=== PATIENT | female | born 2000 | race Caucasian/White ===

== ENCOUNTER → 2019-09-13 13:18 | Outpatient (CLI) | payer OTHER, SELFPAY ==
[2019-09-13 13:34] LABS: Add Manual Diff / Slide Review NO; Basophils Absolute Auto 0 /uL (0-100); Basophils Percent Auto 0.4 % (0-2); Eosinophils Absolute Auto 100 /uL (0-450); Eosinophils Percent Auto 0.8 % (2-4); Hematocrit 40.2 % (36-46); Hemoglobin 13.3 g/dL (12.0-16.0); Lymphocytes Absolute Auto 2900 /uL (1100-4500); Lymphocytes Percent Auto 27.6 % (25-40); Mean Corpuscular HGB Conc 33.2 % (30-36); Mean Corpuscular Hemoglobin 30.3 PG (26-34); Mean Corpuscular Volume 91.1 fL (80-100); Monocytes Absolute Auto 700 /uL (0-900); Monocytes Percent Auto 6.8 % (3-14); Neutrophils Absolute Auto 6800 /uL (1500-7000); Neutrophils Percent Auto 64.4 % (50-75); Platelet Count 270 X10^3/uL (150-400); Red Blood Cell Count 4.41 X10^6/uL (4.0-5.2); Red Cell Distribution Width 12.7 % (11.6-14.8); White Blood Cell Count 10.5 X10^3/uL (4.5-11.0)
[2019-09-13 14:18] LABS: Free T4, Direct Thyroxine 1.03 ng/dL (0.78-2.19)
[2019-09-13 14:32] LABS: Thyroid Stimulating Hormone 8.71 uIU/mL (0.47-4.68)
== END ==
PROVIDERS: Referring Provider Family Medicine; Visit Provider Family Medicine
DX: E03.9 Hypothyroidism, unspecified (principal)
CPT/HCPCS: 36415; 84439; 84443; 85025

== ENCOUNTER 2019-11-30 23:46 | Emergency (ER) | payer OTHER, SELFPAY ==
[2019-11-30 23:51] VITALS: BP 136/97; PULSE 81; RESP 16; TEMP 36.8; O2SAT 97; BMI 36.6
--- NOTE | 2019-11-30 23:54 | ED.BURNSMOKE ---
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 It is approximately 3 x 5 cm with areas of blistering and areas where the skin is completely spared. Pain is minimal at this time. Related Data Previous Rx's Medication Instructions Recorded triamcinolone acetonide 0.1 % 1 applictn TOP BID #30 gram 09/13/19 topical cream levothyroxine 112 mcg tablet 112 mcg PO DAILY #90 tab 10/25/19 norgestimate-ethinyl estradiol 1 tab PO DAILY #84 tab 10/25/19 Allergies Allergy/AdvReac Type Severity Reaction Status Date / Time No Known Drug Allergies Allergy Verified 10/25/19 08:56 Review of Systems Review of Systems Narrative: Pertinent positive and negative findings as per HPI Remainder of review of systems is otherwise unremarkable for Constitutional: Fevers, chills, weakness ENT: No sore throat, neck pain, ear pain CV: Chest pain, palpitations, dyspnea on exertion Respiratory: Cough, wheeze, dyspnea Patient History Medical History Contraceptive management (Acute) Eczema (Acute) Hypothyroidism (Acute) Tinea (Acute) Social History Smoking Status: Former smoker Smoking Status: Former smoker Substance Use Type: marijuana Exam Narrative Exam Narrative: General: Alert appropriate in no acute distress Respiratory: Able to speak in full sentences, no obvious respiratory distress Skin: No obvious rashes, warm and dry Neurologic: Grossly intact no obvious asymmetries or abnormalities Psych, appropriate insight and affect, cooperative Extremity: 3 x 5 cm area of burn from hot grease. Areas intermittently blistering and areas of spared skin. Initial Vital Signs Initial Vital Signs: Vital Signs Temperature 98.2 F 11/30/19 23:51 Pulse Rate 81 11/30/19 23:51 Respiratory Rate 16 11/30/19 23:51 Blood Pressure 136/97 H 11/30/19 23:51 Pulse Oximetry 97 11/30/19 23:51 Course Orders Ordered: Discontinued Medications Bacitracin (Bacitracin) 5 applic TOP NOW ONE Stop: 12/01/19 00:07 Last Admin: 12/01/19 00:20 Dose: 5 applic Documented by: CHONG Vital Signs Vital signs: Vital Signs - 8 hr 11/30/19 23:51 Temperature 98.2 F Pulse Rate 81 Respiratory Rate 16 Blood Pressure 136/97 H Pulse Oximetry 97 MDM - Burn/Smoke Inhalation MDM Narrative Medical decision making narrative: Superficial burn from oil splattering. Areas of second-degree and areas of spared skin. Will need to keep it covered with antibiotic ointment. Will recommend follow-up an urgent care or back to the emergency department in about 3 days to make sure all is healing well as she does not have a primary care physician at this time. Safe for home discharge Discharge Plan Departure Patient Disposition: Home Clinical Impression: Burn of upper extremity Qualifiers: Encounter type: initial encounter Upper extremity location: forearm Laterality: right Burn degree: partial thickness (2nd degree) Qualified Code(s): T22.211A - Burn of second degree of right forearm, initial encounter Discharge Date/Time: 12/01/19 00:30 Instructions: DI for [facility] Activity Restrictions/Additional Instructions: Thank you for coming in today I am very pleased that this burn is not hurting too much at this time. Using 400 mg of ibuprofen (2 [id number] pills) and 1 Tylenol every 6 hours can be very helpful in controlling pain. For the burn itself, please keep the area covered with antibiotic ointment. Please do not pop the blisters, they will break naturally. Prior to breaking they are acting as a biologic bandage. After they break sometimes we do need to help heal off some of the skin. At this time antibiotic ointment is the only antibiotic you need. However, infection is 1 of the most important complications we see with [facility]avez. You will need to have this wound seen in about 3 days. As you do not currently have a primary care physician and urgent appointments are quite difficult to arrange in the age of Covid, I am going to suggest that you simply go to urgent care or return to the emergency room so a provider can look at the wound and make sure you do not need any antibiotics or further treatment. I hope you heal quickly. I wish you the best. Prescriptions: No Action triamcinolone acetonide 0.1 % cream 1 applictn TOP BID Qty: 30 RF: 1 levothyroxine 112 mcg tablet 112 mcg PO DAILY Qty: 90 RF: 3 norgestimate-ethinyl estradiol 0.18/0.215/0.25 mg-35 mcg (28) tablet 1 tab PO DAILY Qty: 84 RF: 3
[2019-12-01] MEDS: BACITRACIN OINT 0.9 GM PCKT 5 APPLIC TOP (00:20)
== END 2019-12-01 00:30 | disposition home or self-care (01) ==
PROVIDERS: Emergency Provider Emergency Medicine
DX: T22.211A Burn of second degree of right forearm, initial encounter (principal); X10.2XXA Contact with fats and cooking oils, initial encounter; Y99.0 Civilian activity done for income or pay
CPT/HCPCS: 99282